=== PATIENT | male | born 1985 | race African-American/Black ===

== ENCOUNTER 2020-04-29 12:48 | Inpatient (IN) | payer MEDICAID ==
[~2020-04-29] VITALS: Ht 193 cm; Wt 90.7 kg
--- NOTE | 2020-04-29 13:15 | NUR ---
PATIENT AWAKE ALERT AND ORIENTED, VERBALLY RESPONSIVE, NO DISTRESS NOTED.
[2020-04-29] MEDS ORDERED: NALO4SPR NS (13:38)
[2020-04-29] MEDS ORDERED: ONDANSETRON HCL/PF 4 MG/2 ML VIAL ONE ×2 (15:35→20:28)
[2020-04-29] MEDS ORDERED: ONDANSETRON HCL/PF 4 MG/2 ML VIAL IV ONE ×2 (16:30→20:30)
--- NOTE | 2020-04-29 16:31 | NUR ---
PATIENT RESTING, WAS C/O NAUSEA AND VOMITING.
--- NOTE | 2020-04-29 19:48 | NUR ---
PT IS ON N/C 2 LPM AT SATOX 96%
[2020-04-29] MEDS ORDERED: AZITHROMYCIN 500 MG VIAL ONE (20:28)
[2020-04-29] MEDS ORDERED: IV NS 0.9% 1,000 ML BAG IV ONE (20:30)
[2020-04-29] MEDS: AZITHROMYCIN 1,000 MG in IV D5W 250 ML IV ONE ×2 (20:38→21:13)
[2020-04-29] MEDS ORDERED: AZITHROMYCIN 250 MG TABLET ONE (21:14)
[2020-04-29] MEDS ORDERED: AZITHROMYCIN 250 MG TABLET PO ONE (21:30)
--- NOTE | 2020-04-29 21:52 | NUR ---
PT CONTINUES TO SAT 88%. PLACED ON 2L NC, SAT 97%.
[2020-04-29 22:03] LABS: BASOPHILS % (AUTO) 0.1 % (0.0-2.0); HEMATOCRIT 51 % (39-51); HEMOGLOBIN 16.8 g/dL (13.5-17.5); LYMPHOCYTES # (AUTO) 0.5 /CMM (0.8-4.8); LYMPHOCYTES % (AUTO) 3.1 % (20.0-44.0); MEAN CORPUSCULAR HGB CONC 33 g/dl (31.0-36.0); MEAN CORPUSCULAR VOLUME 96 fL (80-96); MONOCYTES # (AUTO) 0.6 /CMM (0.1-1.30); MONOCYTES % (AUTO) 4.3 % (2.0-12.0); NEUTROPHILS # (AUTO) 13.9 /CMM (1.8-8.9); NEUTROPHILS % (AUTO) 92.5 % (43.0-81.0); PLATELET COUNT (AUTO) 250 /CMM (150-450)
[2020-04-29 22:10] LABS: CALCIUM, SERUM 8.7 mg/dL (8.5-10.1); CARBON DIOXIDE 28 mmol/L (21-32); CHLORIDE 100 mmol/L (98-107); GLUCOSE 128 mg/dL (74-106); SODIUM SERUM 135 mmol/L (136-145); UREA NITROGEN, BLOOD 14 mg/dL (7-18)
--- NOTE | 2020-04-29 22:14 | NUR ---
KOJOID SWABBED, SENT TO LAB.
[2020-04-29 22:16] LABS: ALANINE AMINOTRANSFERASE 45 U/L (12-78); ALBUMIN 3.9 g/dL (3.4-5.0); ALCOHOL, BLOOD < 3 mg/dL (0-0); ALKALINE PHOSPHATASE 76 U/L (46-116); ASPARTATE AMINOTRANSFERASE 34 U/L (15-37); BILIRUBIN,DIRECT 0.2 mg/dL (0.0-0.2); BILIRUBIN,TOTAL 0.5 mg/dL (0.2-1.0); TOTAL PROTEIN, SERUM 7.8 g/dL (6.4-8.2)
--- NOTE | 2020-04-29 22:20 | NUR ---
DR. PEDRAZA SPEAKING WITH DR. RIOS REGARDING ADMISSION
--- NOTE | 2020-04-29 22:26 | NUR ---
AWAITING FOR PT TO PROVIDE URINE
[2020-04-29 22:34] LABS: BILIRUBIN,URINE Negative (NEGATIVE); COLOR,URINE YELLOW (YELLOW); LEUKOCYTE ESTERASE ,URINE Negative (NEGATIVE); NITRITE, URINE Negative (NEGATIVE); PROTEIN,URINE 30 mg/dl (NEGATIVE); UGLUCOSE Negative (NEGATIVE)
[2020-04-29 22:56] LABS: BACTERIA,URINE Rare /HPF (None Seen); RBC,URINE NONE SEEN /HPF (0-2); SQUAMOUS EPITHELIAL CELL,UR Few /HPF (None Seen); WBC,URINE NONE SEEN /HPF (0-3)
[2020-04-29 22:58] LABS: B-TYPE NATRIURETIC PEPTIDE 94 PG/ML (0-125)
[2020-04-29] MEDS ORDERED: ACETAMINOPHEN 325 MG TABLET PO PRN (23:30)
[2020-04-29] MEDS ORDERED: ONDANSETRON HCL/PF 4 MG/2 ML VIAL IVP PRN (23:30)
[2020-04-29] MEDS ORDERED: IV NS 0.9% 1,000 ML IV ONE (23:30)
[2020-04-29] MEDS ORDERED: Z GUARD REMEDY 2 OZ OINT TP PRN (23:30)
[2020-04-29] MEDS ORDERED: ZOLPIDEM TARTRATE 5 MG TABLET PO PRN (23:30)
[2020-04-29] MEDS ORDERED: MAG HYDROX/AL HYDROX/SIMETH 30 ML UDC PO PRN (23:30)
[2020-04-29] MEDS ORDERED: MAGNESIUM HYDROXIDE 30 ML UDC PO PRN (23:30)
[2020-04-29] MEDS ORDERED: HYDROCODONE/APAP 5/325MG TABLET PO PRN (23:30)
[2020-04-30 04:57] LABS: BASOPHILS % (AUTO) 0.1 % (0.0-2.0); HEMATOCRIT 49 % (39-51); HEMOGLOBIN 15.7 g/dL (13.5-17.5); LYMPHOCYTES # (AUTO) 1.3 /CMM (0.8-4.8); LYMPHOCYTES % (AUTO) 9.6 % (20.0-44.0); MEAN CORPUSCULAR HGB CONC 32 g/dl (31.0-36.0); MEAN CORPUSCULAR VOLUME 96 fL (80-96); MONOCYTES # (AUTO) 0.9 /CMM (0.1-1.30); MONOCYTES % (AUTO) 6.8 % (2.0-12.0); NEUTROPHILS # (AUTO) 11.3 /CMM (1.8-8.9); NEUTROPHILS % (AUTO) 83.5 % (43.0-81.0); PLATELET COUNT (AUTO) 244 /CMM (150-450); RED BLOOD CELL COUNT(AUTO) 5.08 MIL/uL (4.5-6.0); WHITE BLOOD COUNT (AUTO) 13.5 K/uL (4.3-11.0)
[2020-04-30 05:13] LABS: CALCIUM, SERUM 8.2 mg/dL (8.5-10.1); CREATININE 0.8 mg/dL (0.6-1.3); MAGNESIUM 1.6 mg/dL (1.8-2.4); PHOSPHORUS 3.6 mg/dL (2.5-4.9); POTASSIUM 3.5 mmol/L (3.5-5.1)
--- NOTE | 2020-04-30 09:25 | NUR ---
hailee sheldon, family left contact # [phone]
--- NOTE | 2020-04-30 10:02 | NUR ---
PATIENT A/OX4, BREATHING EVEN AND UNLABORED, SPO2 WITH 96% ON ROOM AIR. NO SOB NOTED, BREAKFAST TRAY PROVIDED. PATIENT CALLED HIS MOM TO PICK HIM UP. BJORN MANCINI NP MADE AWARE.
--- NOTE | 2020-04-30 10:28 | NUR ---
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 VS STABLE, PATIENT ON ROOM AIR WITH SPO2 OF 97%. BP OF 138/84. PATIENT DENIES ANY PAIN AT THIS TIME. AMBULATORY WITH STEADY GAIT. IV removed. Catheter intact and site benign. Pressure and 4x4 applied to site. No bleeding noted. Patient discharged to home in stable condition. Written and verbal after care instructions given. Patient verbalizes understanding of instruction. Patients joel Sanchez, picked up the patient.
[2020-04-30 10:30] VITALS: BP 138/84
--- NOTE | 2020-04-30 10:45 | NUR ---
"SS consult requested by ED for Drug OD. The pt. is a 35-year old male. Per MD note, pt. brought in by paramedics to the ED due to overdose on fentanyl and cocaine at his apartment. MANOHAR met with pt. bedside and pt. is A&O X4. Pt. Stated that he sought out medical attention due to SOB. Pt. denies drug use. However, lab results show pt. was positive for Cannabinoids, Fentanyl & Cocaine. Pt. stated he consumes ETOH recreationally but it is not a problem in his life. Pt. stated he is couch surfing between his mom, Laura Price [phone] house and his aunts house. SW offered to provide pt. with homeless resources and pt. was agreeable. Pt. is ambulatory. Pt. denies SI/HI and pt. denies hallucinations. Pt. stated he does not receive any financial assistance. Pt. denies any psych Hx. Plan: Pt. was discharged to self and picked up by his mother, Laura Price [phone]. MANOHAR unable to provide resources or have pt. sign homeless waiver to before he departed. However, MANOHAR called and got pt.s verbal consent to mail resources to : [phone] [place] [address] [address] [place]. MANOHAR mailed the following resources to the pt.: Substance Abuse resources provided included: [facility] Substance Abuse Self-Helpline ([facility]) ; [facility] [address] [facility]. [place] [id number] ; [place] [id number] [facility] [address] ; [facility] [address] [facility] [address] ; [facility] [address] [facility] [address] ; [facility] [address] [facility] [address] ; [facility] [address] [facility] [phone] ; [facility] Substance Abuse Helpline([facility] ; [facility] ; [facility] [place]; [facility] [place]; [facility] [place]; [facility] Malik Wolff; [facility] [place]; [facility]; [facility]; [facility], [facility]. [facility]; Alcoholics Anonymous -[facility]; Io-Tnbo-Pexekvx ; Marijuana Anonymous -[facility]; Narcotics Anonymous www.na.org. Year-round shelters: [place] [facility] [address] [place], [place] [phone] ; [facility] [place] [place] [address]; [place] [facility] [id number] [facility] [address] Winter Shelters: Claudia James [place] Provider: [facility] [place] Address: [address] [facility], [address] # of Beds: 47 Population Served: [facility] 6 | [facility] Jes Wu [place] Provider: [facility] Address: [address] [place] [address], [address] # of Beds: 66 Population Served: [facility] [place] Provider: First to Serve Address: [address] [facility], [address] # of Beds: 56 Population Served: [facility] Nicholas SaraBouchra [place] Provider: [facility] Address: [address] [facility], [address] # of Beds: 49 Population Served: [facility] 8 | [facility] Provider: First to Serve Address: [address] [facility], [address] # of Beds: 37 Population Served: [facility]: [facility]: [address] Adan Sange ; [facility] [address] [facility] ; [facility] [address], [place] . Food Resources: [facility]- [address] [place]; Meet Each Need with [facility] ([facility]) [address] [facility] [place]; [facility] Food [facility]ry [address] [facility]; [facility] [address] [facility] Coin. Mental Health resources provided: [facility] [address] [place], [place] [phone] ; [facility] [address] [facility] [address], [place], [place] [id number] ; [facility] [address] [facility] [place], [place] [phone] ; [facility] [address] [place], [place] [phone] Healthcare Clinics: [facility] [address] [facility], [address] [place]. [place] ; [facility] [address] [facility] [address] [place] [address]; [facility] [address] [facility]. [place] [phone]."
== END 2020-04-30 10:30 | disposition home or self-care (01) | DRG 812 ==
LOC: ER 12:50 → EDBD 12:50 → TRANSITION 22:31
PROVIDERS: ADMIT Family Medicine; ATTEND Family Medicine
DX: T40.411A Poisoning by fentanyl or fentanyl analogs, accidental (unintentional), initial encounter (principal); T40.5X1A Poisoning by cocaine, accidental (unintentional), initial encounter; Y92.009 Unspecified place in unspecified non-institutional (private) residence as the place of occurrence of the external cause; E87.1 Hypo-osmolality and hyponatremia; Z20.2 Contact with and (suspected) exposure to infections with a predominantly sexual mode of transmission; J96.01 Acute respiratory failure with hypoxia; Z82.49 Family history of ischemic heart disease and other diseases of the circulatory system; E86.1 Hypovolemia; R73.9 Hyperglycemia, unspecified; D72.829 Elevated white blood cell count, unspecified
CPT/HCPCS: 36415; 71045-TC; 80048-TC; 80061-TC; 80076-TC; 81001; 83735-TC; 83880; 84100-TC; 84484-TC; 85025-TC; 87081-TC; G0378; G0480; J0456; J2405; J7030